=== PATIENT | male | born 1960 | race Caucasian/White ===

== ENCOUNTER 2025-01-07 12:40 | Inpatient (IN) | payer MEDICARE, SELFPAY ==
[2025-01-07] VITALS (11 sets, daily range): BP systolic 73–94; BP diastolic 59–87; PULSE 74–115; RESP 10–18; TEMP 31.8–35.2; O2SAT 85–99
--- NOTE | ~2025-01-07 | XR_ITS ---
XR chest port-a-cath/central 01/07/2025 13:21 Indication: Central line placement Procedure: AP portable chest Comparison: 01/07/2025 Findings: Cardiomegaly. Mild interstitial edema. No pleural effusion or pneumothorax. Right IJ central line tip in the SVC. No pneumothorax. Endotracheal tube tip is in expected position, tip approximately 3 cm above the urban.. Impression: 1: Mild interstitial edema. Reviewed, dictated and finalized at location O. Impression: 1: Mild interstitial edema.
--- NOTE | ~2025-01-07 | XR_ITS ---
EXAMINATION: XR chest 1V portable DATE: 01/07/2025 13:01 INDICATION: CODE BLUE. ST elevation myocardial infarction TECHNIQUE: frontal view of the chest was obtained. COMPARISON: Chest radiograph dated 03/26/14 FINDINGS: The lungs are clear with no focal airspace opacities, pulmonary edema, pleural effusion or pneumothorax. The cardiomediastinal silhouette is within normal limits for AP technique. Likely defibrillator pads project over the lower chest and upper abdomen. Additional device external to the patient projects over the mid to lower chest. IMPRESSION: 1. No acute cardiopulmonary disease. Reviewed, dictated and finalized at location A.
--- NOTE | 2025-01-07 12:44 | ECG_ITS ---
Test Date: 2025-01-07 12:44:02 Measurements Intervals [place] Rate: 88 P: 0 [place]: 0 QRS: 158 QRSD: 183 T: 82 QT: 380 QTc: 461 Interpretive Statements ATRIAL FIBRILLATION RIGHT AXIS DEVIATION [QRS AXIS > 100] RIGHT BUNDLE BRANCH BLOCK [120+ ms QRS DURATION, UPRIGHT V1, 40+ ms S IN I/aVL/V4/V5/V6] MARKED ST DEPRESSION, CONSIDER SUBENDOCARDIAL INJURY [0.2+ mV ST DEPRESSION] ACUTE [place] CRITICAL ECG No previous ECG available for comparison Electronically Signed On 01-07-2025 15:37:54 CDT by Anthony Mercer M.D.
[2025-01-07] MEDS: MIDAZOLAM HCL (*CRX) 2 MG/2 ML VIAL 6 MG (12:55)
[2025-01-07] MEDS: HYDROmorphone HCL INJ (*CRX) 1 MG/ML SYR (12:55)
--- NOTE | 2025-01-07 12:58 | PC.NURSE ---
[facility] 1252 [facility] 125[address] [place] 1253 [place] 1257 [facility] eta 30min
[2025-01-07] MEDS: FENTANYL 2,500MCG/NS250ML(*CRX 2,500 MCG/250 ML BAG 10 MCG (12:59)
[2025-01-07] MEDS: MIDAZOLAM 100MG/NS 100ML(*CRX) 100 MG/100 ML BAG (12:59)
--- NOTE | 2025-01-07 13:02 | ECG_ITS ---
Test Date: 2025-01-07 13:16:16 Measurements Intervals [place] Rate: 75 P: 0 PA: 0 QRS: 99 QRSD: 179 T: 147 QT: 424 QTc: 476 Interpretive Statements UNCERTAIN REGULAR RHYTHM RIGHT BUNDLE BRANCH BLOCK [120+ ms QRS DURATION, UPRIGHT V1, 40+ ms S IN I/aVL/V4/V5/V6] MARKED ST ELEVATION, CONSIDER INFERIOR INJURY [MARKED ST ELEVATION W/O NORMALLY INFLECTED T-WAVE IN II/aVF] ACUTE [place] CRITICAL ECG Compared to ECG 01/07/2025 12:50:59 ST (T wave) deviation still present Electronically Signed On 01-07-2025 15:40:46 CDT by Anthony Mercer M.D.
[2025-01-07] MEDS: NOREPINEPHRINE 8 MG/D5W 250 ML 8 MG/250 ML BAG 9.4 MG (13:07)
--- NOTE | 2025-01-07 13:14 | ECG_ITS ---
Test Date: 2025-01-07 12:50:59 Measurements Intervals [place] Rate: 81 P: 0 IN: 0 QRS: 103 QRSD: 201 T: 75 QT: 391 QTc: 455 Interpretive Statements ATRIAL FIBRILLATION WITH ABERRANT CONDUCTION OR VENTRICULAR PREMATURE COMPLEXES RIGHT AXIS DEVIATION [QRS AXIS > 100] RIGHT BUNDLE BRANCH BLOCK [120+ ms QRS DURATION, UPRIGHT V1, 40+ ms S IN I/aVL/V4/V5/V6] MARKED ST DEPRESSION, CONSIDER SUBENDOCARDIAL INJURY [0.2+ mV ST DEPRESSION] ACUTE [place] CRITICAL ECG Compared to ECG 01/07/2025 12:44:02 Ventricular premature complex(es) now present Aberrant conduction of supraventricular beat(s) now present ST (T wave) deviation still present Electronically Signed On 01-07-2025 15:38:15 CDT by Anthony Mercer M.D.
[2025-01-07 13:18] LABS: Hematocrit 38.8 % (42.0-52.0); Hemoglobin 12.7 g/dL (14.0-18.0); Immature Granulocyte Percent A 3.2 % (0-0.5); Lymphocytes Absolute Auto 2.17 K/mm3 (0.9-3.2); Mean Corpuscular HGB Conc 32.7 g/dl (32-36); Mean Corpuscular Hemoglobin 32.6 pg (26-34); Mean Corpuscular Volume 99.5 fl (80-100); Nucleated Red Blood Cells Absolute Auto 0.000 K/mm3 (0.0-0.012); Nucleated Red Blood Cells Perc 0.0 % (0.0-0.2); Platelet Count Result 149 k/mm3 (150-375); Red Blood Count 3.90 M/mm3 (4.6-6.20); White Blood Count 10.6 K/mm3 (4.5-10.0)
[2025-01-07 13:31] LABS: INR 1.2; Prothrombin Time 15.2 Seconds (11.1-14.7)
[2025-01-07 13:32] LABS: Partial Thromboplastin Time 27.8 Seconds (22.3-36.8)
[2025-01-07 13:33] LABS: Alanine Aminotransferase 178 U/L (6-50); Albumin Level 3.3 g/dL (3.5-5.1); Alkaline Phosphatase 41 U/L (38-126); Anion Gap 20 mmol/L (4-12); Aspartate Amino Transferase 191 U/L (17-59); Bilirubin,Total 0.6 mg/dL (0.2-1.3); Blood Urea Nitrogen 15 mg/dL (9-20); Calcium 8.2 mg/dL (8.4-10.2); Carbon Dioxide 11 mmol/L (22-30); Chloride 104 mmol/L (98-107); Cholesterol 145 mg/dL (0-200); Glucose 334 mg/dL (65-110); HDL Direct 46 mg/dL; Potassium 3.3 mmol/L (3.4-5.0); Sodium 135 mmol/L (137-145); Total Protein 5.6 g/dL (6.3-8.2); Triglycerides 225 mg/dL (<150)
--- NOTE | 2025-01-07 13:39 | ED.GENADULT ---
HPI - General Adult General Chief complaint: Cardiac Arrest/CPR Stated complaint: cardiac arrest Time Seen by Provider: 01/07/25 12:59 History of Present Illness HPI narrative: This is a 64-year-old male with history of hypertension high cholesterol and daily alcohol use (6 beers daily) presenting with CPR in progress. The patient came home from the gym and collapsed in front of his . He called EMS and police arrived and performed CPR. When EMS arrived an Igel was placed. Patient was in VFib and received multiple shocks as well as 300mg -> 150mg amiodarone plus mx rounds of EPI. On arrival patient was being some spontaneous movement and breathing actively. Rhythm was V-tach. Patient was defibrillated once with return of a organized rhythm. Related Data Allergies Allergy/AdvReac Type Severity Reaction Status Date / Time No Known Allergies Allergy Mild Unverified 04/11/04 13:26 Exam Narrative: APPEARANCE: CPR in progress Head: atraumatic. EYES: 4 mm NOSE: Atraumatic NECK: Trachea midline RESPIRATORY: LMA in place w/ BVM, lung sounds equal bilaterally CARDIOVASCULAR: Pulseless, V-tach on monitor ABDOMINAL: Non-distended MUSCULOSKELETAl: No obvious deformities NEURO unresponsive SKIN::: cold PSYCHIATRIC: unresponsive Course Vital Signs Vital signs: Vital Signs Pulse Rate 85 01/07/25 13:02 Respiratory Rate 10 L 01/07/25 13:02 Blood Pressure 73/59 L 01/07/25 13:02 Pulse Oximetry 87 L 01/07/25 13:02 Pulse Rate 85 01/07/25 13:02 Respiratory Rate 10 L 01/07/25 13:02 Blood Pressure 73/59 L 01/07/25 13:02 Pulse Oximetry 90 01/07/25 13:12 Oxygen Delivery Mechanical Ventilation 01/07/25 13:12 Procedures Arterial Line Arterial line #1: Date of Arterial Line: 01/07/25 Arterial Line Location: radial and left Perfomed Emergently - Given emergent patient conditions, temporal constraints may have precluded informed consent: Yes Time Out Performed: No Size (Gauge): 18 Technique Used: guide wire technique Post-Procedure: line sutured into place and dry sterile dressing placed Patient Tolerated Procedure: well Complications: none Additional Comments: Line was placed emergently and is NOT sterile. Central Line Placement Right IJ: Central Line Date: 01/07/25 Discussed w/ the patient/family/POA,the placement of a central venous catheter, including its clinical necessity/indication & associated potential risks, benifits and alternatives.: Yes The patient/family/POA understand(s) and acknowledge(s) the need to proceed with central venous catheter insertion as an important element of the patient's clinical management.: Yes Performed Emergently - Given emergent patient condition, temporal constraints may have precluded informed consent.: Yes Time Out Performed: Yes Patient Placed on Monitor/Pulse Ox: Yes Max. Sterile Barrier Technique: Caps, large sterile sheet and hand hygiene Central Line Prep: 2% chlorhexidine scrub and sterile drapes applied Technique: US-Guided Ultrasound Used for Placement: Yes Central Line Lumen Inserted: triple Post Procedure: sutured in place, good blood return, all ports aspirated, flushed, capped and sterile dressing applied Post Procedure X-Ray: tip of catheter in good position Patient Tolerated Procedure: well Complications: none Medical Decision Making MDM Narrative Medical decision making narrative: -Course: 64-year-old male presenting after a witnessed VFib arrest. Total down time of 27 minutes. When patient 1st arrived he had some spontaneous purposeful the movement and grunting. First pulse check showed VFib/V-tach. Patient was shocked with return of organized rhythm and pulses. Patient was intubated. Interventional cardiology was called for VFib arrest with others EKG showing elevations in AVR w/reciprocal changes in V1 through V5. Patient required a central line and pressors. A nonsterile left radial art line was placed under emergent conditions. Patient was intermittently going into a wide complex rhythm with pulses although his pulses did become very weak and thready that time. He with an auto converted back to normal sinus rhythm. Patient will be taken to the photofinishing laboratory worker for emergent intervention. Vital Signs Vital Signs: Vital Signs Pulse Rate 85 01/07/25 13:02 Respiratory Rate 10 L 01/07/25 13:02 Blood Pressure 73/59 L 01/07/25 13:02 Pulse Oximetry 87 L 01/07/25 13:02 Pulse Rate 85 01/07/25 13:02 Respiratory Rate 10 L 01/07/25 13:02 Blood Pressure 73/59 L 01/07/25 13:02 Pulse Oximetry 90 01/07/25 13:12 Oxygen Delivery Mechanical Ventilation 01/07/25 13:12 Lab Data 01/07/25 13:09 01/07/25 13:09 Labs: Lab Results 01/07/25 Range/Units 13:09 WBC 10.6 H (4.5-10.0) K/mm3 RBC 3.90 L (4.6-6.20) M/mm3 Hgb 12.7 L (14.0-18.0) g/dL Hct 38.8 L (42.0-52.0) % MCV 99.5 (80-100) fl MCH 32.6 (26-34) pg MCHC 32.7 (32-36) g/dl RDW 11.3 L (11.5-14.5) % Plt Count 149 L (150-375) k/mm3 MPV 10.2 (7.4-10.4) fl Immature Gran % (Auto) 3.2 H (0-0.5) % Neut % (Auto) 70.1 (45.5-73.1) % Lymph % (Auto) 20.5 (18.3-44.2) % Woodruff % (Auto) 5.2 (2.6-8.5) % Eos % (Auto) 0.6 (0-4.4) % Baso % (Auto) 0.4 (0.2-1.2) % Lymph # (Auto) 2.17 (0.9-3.2) K/mm3 Woodruff # (Auto) 0.6 (0.1-0.6) K/mm3 Eos # (Auto) 0.1 (0-0.3) K/mm3 Baso # (Auto) 0.0 (0.0-0.1) K/mm3 Abs Immat Gran (auto) 0.34 H (0.00-0.031) K/mm3 Absolute Neuts (auto) 7.4 H (1.3-6.7) K/mm3 Absolute Nucleated RBC 0.000 (0.0-0.012) K/mm3 Nucleated RBC % 0.0 (0.0-0.2) % PT 15.2 H (11.1-14.7) Seconds INR 1.2 APTT 27.8 (22.3-36.8) Seconds Sodium 135 L (137-145) mmol/L Potassium 3.3 L (3.4-5.0) mmol/L Chloride 104 (98-107) mmol/L Carbon Dioxide 11 L (22-30) mmol/L Anion Gap 20 H (4-12) mmol/L BUN 15 (9-20) mg/dL Creatinine Pending Estim Creat Clear Calc Pending Estimated GFR Pending Glucose 334 H (65-110) mg/dL Calcium 8.2 L (8.4-10.2) mg/dL Total Bilirubin 0.6 (0.2-1.3) mg/dL AST 191 H (17-59) U/L ALT 178 H (6-50) U/L Alkaline Phosphatase 41 (38-126) U/L Troponin I Pending Total Protein 5.6 L (6.3-8.2) g/dL Albumin 3.3 L (3.5-5.1) g/dL Triglycerides 225 H (<150) mg/dL Cholesterol 145 (0-200) mg/dL LDL Cholesterol Direct Pending HDL Direct 46 mg/dL Blood Type Pending Antibody Screen Pending Critical Care Time Critical Care Time Critical Care Time: Yes Total Critical Care Time: 75 Discharge Plan Discharge Clinical Impression: Cardiac arrest, Cardiac arrest with ventricular fibrillation Patient Disposition: Still a Patient Condition: Critical
[2025-01-07 13:43] LABS: Estimated CRCL calculation 37 ml/min; Estimated Glomerular Filt Rate 35; Troponin I 0.087 ng/mL (0.000-0.034)
--- NOTE | 2025-01-07 13:50 | PM.IMHP ---
H&P: HPI History of Present Illness Date/Time: Date of service 01/07/25 13:50 Chief Complaint: Cardiac arrest Narrative: This 64-year-old patient who apparently was in the gym earlier and after finishing workout felt chest pain and then apparently collapsed. Reported that he had VFib arrest. CPR administered. Patient was intubated. EKG shows diffuse ST depressions. Apparently in the ER collapsed again and had to undergo another CPR. Currently on 5 mcg of Levophed. Intubated and ventilated. Review of Systems Review of Systems: ROS unobtainable: Yes unobtainable due to endotracheal tube Meds Home Medications and Allergies Allergies Allergy/AdvReac Type Severity Reaction Status Date / Time No Known Allergies Allergy Mild Unverified 04/11/04 13:26 Vital Signs Vital Signs - 24 hr 01/07/25 13:02 01/07/25 13:12 Pulse Rate 85 Respiratory Rate 10 L Blood Pressure 73/59 L Pulse Oximetry 87 L 90 Oxygen Delivery Mechanical Ventilation Exam Narrative: Intubated ventilated Const: Other: No acute distress HENMT: Other: No nose bleeds Eyes: Other: No scleral icterus Neck: Other: Supple Chest: Other: Decreased air entry bilaterally Resp: Other: Decreased air entry bilaterally Cardio: Other: Regular rhythm, tachycardic GI: Other: Soft nontender Back/Spine/Pelvis: Other: No joint swelling Skin: Other: No rash Neuro: Other: Intubated sedated and ventilated Extrem: Other: No edema Psych: Other: Unable to assess because of intubated H&P: Results Labs Labs: Short CBC 01/07/25 Range/Units 13:09 WBC 10.6 H (4.5-10.0) K/mm3 Hgb 12.7 L (14.0-18.0) g/dL Hct 38.8 L (42.0-52.0) % Plt Count 149 L (150-375) k/mm3 BMP 01/07/25 13:09 Sodium 135 L Potassium 3.3 L Chloride 104 Carbon Dioxide 11 L BUN 15 Creatinine 1.91 H Glucose 334 H Calcium 8.2 L Cardiac Enzymes 01/07/25 Range/Units 13:09 Troponin I 0.087 H* (0.000-0.034) ng/mL Liver Function 01/07/25 Range/Units 13:09 Total Bilirubin 0.6 (0.2-1.3) mg/dL AST 191 H (17-59) U/L ALT 178 H (6-50) U/L Alkaline Phosphatase 41 (38-126) U/L Albumin 3.3 L (3.5-5.1) g/dL Assessment and Plan Assessment and plan (1) Cardiac arrest: Code(s): I46.9 - Cardiac arrest, cause unspecified Status: Acute Assessment and Plan: Patient had VFib arrest according to the report Plan Family informed that we will proceed for emergency cardiac catheterization. They agreeable. Will proceed in emergency fashion
--- NOTE | 2025-01-07 13:54 | P.PCNCC_ITS ---
Cardiac Cath Procedure Note Date of procedure:: 01/07/25 Performing physician:: Hina Granado MD Indication:: Cardiac arrest Brief clinical history:: This 64-year-old patient who apparently was in the gym earlier and after finishing workout felt chest pain and then apparently collapsed. Reported that he had VFib arrest. CPR administered. Patient was intubated. EKG shows diffuse ST depressions. Apparently in the ER collapsed again and had to undergo another CPR. Currently on 5 mcg of Levophed. Intubated and ventilated. Procedure Procedure performed:: 2-Selective left and right coronary angiogram. 3-Left heart catheterization with measurement of LVEDP and measurement of gradient across aortic valve. 4-LV angiogram. 5-attempted balloon angioplasty on the totally occluded left circumflex artery with several attempts with inability to pass wire. However we managed to restore MAIKOL flow 3 wire attempts were 6-insertion of left ventricular assist device Impella. 7-Right common femoral arterial angiogram. 8-insertion of Flintstone catheter and right heart catheterization measurement of pressures, oxygen saturation. Sedation/Medication given:: Moderate sedation. Access site:: Right common femoral artery. Estimated blood loss:: 10cc Procedure note:: After informed consent patient was brought in to roofing laborer with the was draped an d prepped in usual manner. the right groin was infiltrated using 1% lidocaine. six Upper Sor[place] sheath was obtained using micropuncture needle and the modified Seldinger technique. Because I did see is T elevation involving the inferior leads on the roofing laborer the environmental economist I decided to go initially with JR4 catheter and we could not engage the RCA then we withdrew with WRP without success. Subsequently I went with JL4 catheter and then selective left coronary angiogram. 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 After that guide catheter CLS 3.5 was used and we attempted to get better pictures of the RCA and I I could not engage it selectively however I could see that the flow is MAIKOL flow 3. There is possible high-grade lesion in the mid segment though. After that the CLS guide catheter was engaged into the left main. I took a wire initially luge and tried to go in the left circumflex artery without success. Then I used [employer] 150 wire without success and then tried whisper wire without success. Then this catheter was removed and then I took AL 0.75 guide catheter and tried to get a better picture of the RCA and I could not engage it. Then I tried CLS 3 without success. I took back the CLS 3.5 and tried to go back to wire the circ and I noticed that blood flow was established to the circ with MAIKOL flow 3. I could not wire the circ despite multiple attempts. After that 5 [place] pigtail catheter was advanced across the aortic valve into the left ventricle with measurement of LVEDP and measurement of gradient across aortic valve. LV angiogram was done. Pigtail catheter was removed. Right common femoral arterial angiogram was done. Then after that patient went into ventricular tachycardia and shocked 4-5 times. His blood pressure was stable while he was in ventricular tachycardia. I decided to load him with amiodarone 300 mg IV and then we shocked him couple times after that restoring normal sinus rhythm. After that we exchanged the 6 [place] right femoral sheath with Impella sheath. Pigtail catheter was advanced over J-wire and engaged into the left ventricle. This was exchanged with long exchange wire and the Impella was inserted successfully and secured in place. 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 2- left anterior descending artery is a large artery that runs and wraps around the apex. Diffuse irregularities. 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 After restoring blood flow we noticed 99% hazy lesion proximally. 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 There appears to be 80% in the mid segment. MAIKOL flow 3. 5- LVEDP was 32 mm Hg and no gradient across aortic valve. 6-LV angiogram shows ejection fraction 30%. 7- right femoral artery angiogram shows no significant disease in the right common femoral artery. 8-right heart catheterization findings: PA pressure 25 over 15 with a mean of 18. Oxygen pulmonary oxygen saturation 66%. Wedge pressure 15 mm Hg Assessment and Plan Assessment and plan (1) Cardiac arrest: Code(s): I46.9 - Cardiac arrest, cause unspecified Status: Acute Plan -continue Impella support -discussed in details with CT surgery at [facility] who accepted the patient.. -will continue Angiomax. -will make sure the patient receives 325 mg of aspirin -continue monitoring with Flintstone catheter.
--- NOTE | 2025-01-07 13:57 | PCCCNOTE ---
Called to the ED for a code blue arriving for the pt. Met with the daughter in law, Son and initially. Stated the pt had just had a strenuous work out, sat in his chair c/o feeling like he's having a heart attack. stated she went into another room to get Ibuprofen and when she came back he was unresponsive and she called 911. Notes a hx of HTN, hyperlipidemia on Losartan, atorvastatin and testosterone. Reports the pt has a hx of drinking a minimum of 6 beers/day. ED provider updated.-tato
[2025-01-07] MEDS: SODIUM CHLORIDE 0.9% IV 1,000 ML 999 ML (13:58)
--- NOTE | 2025-01-07 14:07 | WPDCNINT ---
Assessment and Plan Assessment and plan (1) Cardiac arrest: Code(s): I46.9 - Cardiac arrest, cause unspecified Status: Acute Assessment and Plan: Patient had a VFib cardiac arrest at home which was witnessed by his . Patient required 2 DC defibrillation at home then 2 en route followed by another 2 in the ER Patient was taken to cardiac catheterization lab where had multiple episodes of VT (at least 6) requiring. Cardiac catheterization showed elevated LVEDP of 32, estimated ejection fraction of 30% and multivessel coronary disease. Considering prolonged downtime with witnessed VFib arrest patient is suspected to have anoxic brain injury. At this time it is difficult to evaluate as patient has been on sedation. Patient is too unstable to take to Radiology for CT scan. Will start patient on TTM protocol. Cardiology is trying to transfer patient to [facility] considering how unstable he is for advanced care. Patient will be transferred to tertiary facility once a bed is available. Currently in cardiogenic shock-continue Impella support and Levophed infusion Plan to continue Angiomax Plan was to admit to ICU post cardiac catheterization but patient was able to get a bed at [facility] and patient was sent by air evac directly from cardiac catheterization lab to [facility]. (2) STEMI (ST elevation myocardial infarction): Code(s): I21.3 - ST elevation (STEMI) myocardial infarction of unspecified site Status: Acute Assessment and Plan: See above (3) Acute respiratory failure: Code(s): J96.00 - Acute respiratory failure, unspecified whether with hypoxia or hypercapnia Status: Acute Assessment and Plan: Acute Respiratory failure secondary to cardiac arrest Patient now intubated and on mechanical ventilation Currently on CMV tidal volume 450, rate of 16, FiO2 100% and 10 of PEEP Will Continue full mechanical ventilation support to prevent hypoxemia/hypercarbia and end organ damage. Chest x-ray reviewed ABG ordered and pending Low tidal volume ventilation strategy to prevent volutrauma (4) Shock: Code(s): R57.9 - Shock, unspecified Status: Acute Assessment and Plan: See above (5) Hyperlipidemia: Code(s): E78.5 - Hyperlipidemia, unspecified Status: Acute Assessment and Plan: Hold statin at this time due to elevated liver enzymes. (6) Essential hypertension: Code(s): I10 - Essential (primary) hypertension Status: Acute Assessment and Plan: Patient now hypotensive and on Levophed infusion (7) Electrolyte abnormality: Code(s): E87.8 - Other disorders of electrolyte and fluid balance, not elsewhere classified Status: Acute Assessment and Plan: Will recheck labs once patient arrives in the ICU (8) Elevated liver enzymes: Code(s): R74.8 - Abnormal levels of other serum enzymes Status: Acute Assessment and Plan: Likely secondary to shock liver Monitor level Patient also on amiodarone Hold statin (9) Anoxic brain injury: Code(s): G93.1 - Anoxic brain damage, not elsewhere classified Status: Acute Assessment and Plan: See above Plan DVT prophylaxis -Angiomax infusion at this time Stress ulcer prophylaxis -PPI Nutrition -NPO Code Status - Full Code I spoke to and updated patient's and daughter with regard to events since coming to the hospital and the patient's current situation with guarded prognosis Total Critical Care Time - 40 minutes Due to a high probability of clinically significant, life threatening deterioration, the patient required my highest level of preparedness to intervene emergently and I personally spent this critical care time directly and personally managing the patient. This critical care time included obtaining a history; examining the patient; pulse oximetry; ordering and review of studies; arranging urgent treatment with development of a management plan; evaluation of patient's response to treatment; frequent reassessment; and discussions with other providers. It was exclusive of separately billable procedures and treating other patients and teaching time. Please see Assessment and Plan section and the rest of the note for further information on patient assessment and treatment Industrial Servicer Consult Note Consult date: 01/08/25 Reason for consult: STEMI, cardiac arrest HPI: Fabián Gamboa is a 64 year old male with possible history of hypertension and hyperlipidemia went to gym after long time and all came home and reported to his that he felt that he had heart attack as he was having chest pain and shortness of breath. While talking to his he suddenly became unresponsive. His started doing CPR while he was in the recliner. She called police and EMS. Once aoc director intelligence officer arrived he started doing CPR. EMS arrived patient was intubated and patient was found in VFib and defibrillated x4. He was placed on Jamal and brought to ER. In ER patient was given amiodarone 300 mg followed by 150 mg. Patient went into V-tach in the ER and again defibrillated x1. Patient was then taken to cardiac catheterization lab . And cardiac lab support technician flow was restored temporally. Patient had multiple episodes of VT (at least 6) requiring defibrillation. Patient was given additional amiodarone push and was started on IV amiodarone infusion. Catheterization showed LVEDP of 32 with EF estimated at 30%. Patient had multivessel disease. Patient is going to [facility] for further evaluation management Review of Systems Review of Systems: ROS unobtainable: Yes unobtainable due to endotracheal tube, unobtainable due to medical condition and unobtainable due to mental status [facility] Past Medical History Medical History (Updated 01/07/25 @ 15:40 by Dao Key MD) Hyperlipidemia Essential hypertension Family History Family History (Updated 01/07/25 @ 14:09 by Dao Key MD) Father Acute myocardial infarction Sibling Acute myocardial infarction Mother Acute myocardial infarction Social History Social History (Updated 01/07/25 @ 14:10 by Dao Key MD) Social History: Patient is a heavy alcohol drinker drinks 6 pack of beers every day and more on the weekends. Occasionally uses marijuana. No smoking or drug abuse Meds Home Medications and Allergies Allergies Allergy/AdvReac Type Severity Reaction Status Date / Time No Known Allergies Allergy Mild Unverified 04/11/04 13:26 Vital Signs Vital Signs - 24 hr 01/07/25 12:38 01/07/25 12:59 01/07/25 12:59 Temperature Pulse Rate 115 H 115 H Respiratory Rate 11 L 11 L Blood Pressure Pulse Oximetry 85 L Oxygen Delivery Bag Valve Mask Oxygen Flow Rate 01/07/25 13:02 01/07/25 13:05 01/07/25 13:07 Temperature Pulse Rate 85 76 115 H Respiratory Rate 10 L 16 Blood Pressure 73/59 L Pulse Oximetry 87 L 85 L Oxygen Delivery Oxygen Flow Rate 01/07/25 13:08 01/07/25 13:12 01/07/25 13:15 Temperature Pulse Rate 78 84 Respiratory Rate 16 18 Blood Pressure 73/59 L Pulse Oximetry 88 L 90 93 Oxygen Delivery Mechanical Ventilation Oxygen Flow Rate 01/07/25 13:16 01/07/25 13:32 Temperature 31.8 C L 35.2 C L Pulse Rate 75 91 Respiratory Rate 18 16 Blood Pressure 93/66 L Pulse Oximetry 93 99 Oxygen Delivery Oxygen Flow Rate Exam Narrative: General: Pt is sedated, intubated and on mechanical ventilation Lungs/Chest: Trachea central Coarse BS B/L, No crackles or wheezing. Cardiac: RRR. Normal S1 S2. No murmurs Circulation: Pedal pulses are intact and symmetrical. Abdomen: Decreased bowel sounds. Obese. Soft. NT. ND. Extremities: No clubbing, cyanosis or edema. Warm : Henson in place Neurologic: Unable to assess due to sedation. Unresponsive to painful stimuli. Pupils equal Results Labs 01/07/25 13:09 01/07/25 13:09 Labs: Impressions Chest X-Ray 01/07/25 13:09 IMPRESSION: 1. No acute cardiopulmonary disease. Chest X-Ray 01/07/25 13:35 Impression: 1: Mild interstitial edema. Short CBC 01/07/25 Range/Units 13:09 WBC 10.6 H (4.5-10.0) K/mm3 Hgb 12.7 L (14.0-18.0) g/dL Hct 38.8 L (42.0-52.0) % Plt Count 149 L (150-375) k/mm3 BMP 01/07/25 13:09 Sodium 135 L Potassium 3.3 L Chloride 104 Carbon Dioxide 11 L BUN 15 Creatinine 1.91 H Glucose 334 H Calcium 8.2 L Cardiac Enzymes 01/07/25 Range/Units 13:09 Troponin I 0.087 H* (0.000-0.034) ng/mL Liver Function 01/07/25 Range/Units 13:09 Total Bilirubin 0.6 (0.2-1.3) mg/dL AST 191 H (17-59) U/L ALT 178 H (6-50) U/L Alkaline Phosphatase 41 (38-126) U/L Albumin 3.3 L (3.5-5.1) g/dL Quality VTE Prophylaxis VTE prophylaxis: pharmacologic ordered Hospitalist MIPS Advance Care Plan I have confirmed that the patient's Advanced Care Plan is present, code status is documented, or surrogate decision maker is listed in patient medical record.: Yes Medication Reconciliation I have utilized all available resources to obtain, update and review the patients current medications (includes all prescriptions, OTC, herbals, cannabis, and nutritional supplements).: Yes
--- OUTSIDE RECORDS SUMMARY | 2025-01-07 14:11 | XMS_ITS | Clinical Summary ---
Author Organization [facility] [place] [facility] [facility] Address [address] [place] [address] Care Team Providers Care Pmo Project Manager Name Role Phone Maile Carl NP Primary Care Provider [phone] Unknown, Notinfile Unavailable Unavailable Allergies No known active allergies Medications lisinopriL (PRINIVIL,ZESTRIL) 20 mg tabletIndications:H ypertension, essential Take 1 tablet (20 mg total) by mouth daily 90 tablet 1 5 Active rosuvastatin (CRESTOR) 10 mg tabletIndications:M ixed hyperlipidemia TAKE ONE TABLET (10 MG TOTAL) BY MOUTH DAILY 90 tablet 1 5 Active omeprazole (PriLOSEC) 20 mg capsuleIndications: Eosinophilic esophagitis,Dysphag ia TAKE ONE CAPSULE (20 MG TOTAL) BY MOUTH TWO (2) TIMES A DAY 180 capsule 3 5 Active montelukast (SINGULAIR) 10 mg tabletIndications:S easonal allergies Take 1 tablet (10 mg total) by mouth nightly 90 tablet 1 5 Active Active Problems Problem Noted Date Diagnosed Date Right hand pain 02/20/2024 BMI 29.0-29.9,adult 02/21/2023 Assessment & Plan (02/20/2024 9:12 AM CDT): BMI Follow-up includes: Discussed diet and exercising counseling. Mixed hyperlipidemia 05/02/2022 Prehypertension 03/14/2022 Physical exam, annual 02/14/2022 Gastroesophageal reflux dise ase with esophagitis without hemorrhage 02/14/2022 Seasonal allergies 02/14/2022 Hypertension, essential 02/14/2022 Bilateral primary osteoarthritis of knee 019 Dysphagia 10/03/2017 ETOH abuse 10/03/2017 Eosinophilic esophagitis 02/03/2014 Resolved Problems Problem Noted Date Diagnosed Date Resolved Date BMI 28.0-28.9,adult 08/22/2022 02/22/20 BMI 29.0-29.9,adult 05/22/2022 08/23/19 Assessment & Plan (05/22/2022 9:13 AM LIQUID WASTE TREATMENT PLANT OPERATOR): Weight/BMI is in healthy range. Continue healthy lifestyle to maintain. BMI 29.0-29.9,adult 05/02/2022 05/22/19 23 Assessment & Plan (05/02/2022 11:52 AM LIQU[employer] WASTE TREATMENT PLANT OPERATOR): Weight/BMI is in healthy range. Continue healthy lifestyle to maintain. BMI 29.0-29.9,adult 03/14/2022 05/02/20 22 Assessment & Plan (03/14/2022 1:34 PM LIQU[employer] WASTE TREATMENT PLANT OPERATOR): Weight/BMI is in healthy range. Continue healthy lifestyle to maintain. BMI 28.0-28.9,adult 02/28/2022 03/14/20 22 Assessment & Plan (02/28/2022 2:03 PM CDT): Weight/BMI is in healthy range. Continue healthy lifestyle to maintain. BMI 28.0-28.9,adult 02/14/2022 02/29/20 22 Assessment & Plan (02/14/2022 2:05 PM CDT): Weight/BMI is in healthy range. Continue healthy lifestyle to maintain. Gastroesophageal reflux disease 12/30/2013 10/03/2017 Difficulty in swallowing 12/30/2013 Encounters Date Type Department Care Team Description 12/03/2024 Telephone [facility] [address] [address] Maile Carl NP from Last 3 Months Immunizations Immunization Administration Dates Next Due Influenza, Unspecified 05/07/2024(Deferr ed: Patient Refused),02/20/2024(Deferred: Patient Refused),08/22/2023(Deferred: Patient Refused),05/07/2023(Deferred: Patient Refused),05/07/2023(Deferred: Patient Refused),02/21/2023(Deferred: Patient Refused),05/08/2022(Deferred: Patient Refused),05/07/2022(Deferred: Patient Refused),02/18/2022,06/07/2021(Deferred: Patient Refused),05/09/2021(Deferred: Patient Refused) Tdap 08/22/2022 Surgical History Surgery Date Site/Laterality Comments UPPER GASTROINTESTINAL ENDOSCOPY JOINT REPLACEMENT Medical History Medical History Date Comments Dysphagia Eosinophilic esophagitis 2013 per EGD Anesthesia No personal or f amily history of anethesia problems. GERD (gastroesophageal reflux disease) Allergic Family History Medical History Relation Name Comments Blood Clot Brother Family history of blood clots - (Added by TW Conv) Blood Clot Father Family history of blood clots - (Added by TW Conv) Heart attack Father Hypertension Father Family history of hypertension - (Added by TW Conv) Breast cancer Mother Cancer Mother Family history of cancer - (Added by TW Conv) Blood Clot Sister Family history of blood clots - (Added by TW Conv) Relation Name Status Comments Brother Father Mother Sister Social History Tobacco Use Types Packs/Day Years Used Date Smoking Tobacco: Never Smokeless Tobacco: Never Tobacco Cessation:Counseling Given: Not Answered Alcohol Use Standard Drinks/Week Comments Yes 35 (1 standard drink = 0.6 oz pu re alcohol) 4 cans of beer daily AUDIT-C Answer Date Recorded Q1: How often do you have a drink containing alcohol? 2-4 times a month 02/14/2022 Q2: How many drinks containi ng alcohol do you have on a typical day when you are drinking? Patient does not drink Q3: How often do you have si x or more drinks on one occasion? 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 Gender Identity Not on file Sexual Orientation Not on file Occupation Industry Job Start Date Job End Date Retired Not on file Not on file Not on file Obstetrics History Last Filed Vital Signs Vital Sign Reading Time Taken Comments Blood Pressure 124/80 08/20/2024 9:23 AM CDT Pulse 72 08/20/2024 9:23 AM CDT Temperature 37.3 C (99.1 F) 08/20/2024 9:23 AM CDT Respiratory Rate 24 02/21/2021 8:05 AM CDT Oxygen Saturation 97% 08/20/2024 9:23 AM CDT Inhaled Oxygen Concentration - - Weight 96.2 kg (212 lb) 08/20/2024 9:23 AM CDT Height 180.3 cm (5' 11) 08/20/2024 9:23 AM CDT Body Mass Index 29.57 08/20/2024 9:23 AM CDT Plan of Treatment Health Maintenance Due Date Last Done Comments Hepatitis C Screening 1960 Hepatitis B Screening 1976 Pneumococcal vaccine 65+ (1 of 1 - PCV) 2008 Zoster Vaccine (1 of 2) 2008 Influenza Vaccine (#1) 2025 02/18/2022 Depression Screening 08/20/2025 08/20/2024, 02/20/2024, 08/22/2023, Additional history exists Fall Risk Assessment 08/20/2025 08/20/2024, 02/20/2024, 08/22/2023, Additional history exists Prostate Cancer Screening-PSA 08/20/2025 08/21/2023, 02/19/2023 Well Visit 65+ 08/20/2025 08/20/2024, 02/04, 08/22/2023, Additional history exists Colon Cancer Screening-DNA Stool 03/07/2026 03/07/20 DTaP/Tdap/Td Vaccine (2 - Td or Tdap) 08/22/2032 08/22/2022 Colon Cancer Screening-FIT Discontinued 03/07/2023 Medical Devices Implanted Type Area Physician Obstetrician Device Identifier Shelf Expiration Date Model / Serial / Lot [employer] 6194-1-001 Simplex High Viscosity Cement Bone - [id number] Implanted:Qty: 1 on 06/14/2018 by Rinku Rueda MD at [facility] Bone Cement Right: Knee [employer] 12/05/2019 6194-1-001 / / [id number] [employer] 6194-1-001 Simplex High Viscosity Cement Bone - [id number] Implanted:Qty: 1 on 06/14/2018 by Rinku Rueda MD at [facility] Bone Cement Left: Knee [employer] 12/05/2019 6194-1-001 / / [id number] [employer] [id number] Attune Cruciate Retain Cementless Knee Right 7 Component Femoral - [id number] Implanted:Qty: 1 on 06/14/2018 by Rinku Rueda MD at [facility] Left: Knee [employer] 06/06/2027 [id number] / / [id number] Attune Pinning System Implanted:Qty: 1 on 06/14/2018 by Rinku Rueda MD at [facility] Bilateral : Knee [employer] 03/06/2020 2544-00-111 / / [id number] [employer] [id number] Attune Cementless Rotate Platform Knee 7 Baseplate Tibial - [id number] Implanted:Qty: 1 on 06/14/2018 by Rinku Rueda MD at [facility] Right: Knee [employer] [id number] 06/06/2027 [id number] / / [id number] [employer] [id number] Attune Cruciate Retain Cementless Knee Left 7 Component Femoral - [id number] Implanted:Qty: 1 on 06/14/2018 by Rinku Rueda MD at [facility] Right: Knee [employer] [id number] 09/04/2027 [id number] / / [id number] [employer] [id number] Attune 6mm Cruciate Retaining Rotate Platform Knee 7 Insert - [id number] Implanted:Qty: 1 on 06/14/2018 by Rinku Rueda MD at [facility] Right: Knee [employer] [id number] 05/06/2022 [id number] / / [id number] [employer] [id number] Attune 41mm Cemented Medialize Knee Component Patellar Aox - [id number] Implanted:Qty: 1 on 06/14/2018 by Rinku Rueda MD at [facility] Right: Patella [employer] [id number] 07/04/2020 [id number] / / [id number] [employer] [id number] Attune Cruciate Retain Cementless Knee Left 7 Component Femoral - [id number] Implanted:Qty: 1 on 06/14/2018 by Rinku Rueda MD at [facility] Left: Knee [employer] [id number] 09/04/2027 [id number] / / [id number] [employer] [id number] Attune 41mm Cemented Medialize Knee Component Patellar Aox - [id number] Implanted:Qty: 1 on 06/14/2018 by Rinku Rueda MD at [facility] Left: Patella [employer] [id number] 02/03/2021 [id number] / / [id number] [employer] [id number] Attune 6mm Cruciate Retaining Rotate Platform Knee 7 Insert - [id number] Implanted:Qty: 1 on 06/14/2018 by Rinku Rueda MD at [facility] Left: Knee [employer] [id number] 04/05/2023 [id number] / / [id number] Procedures Procedure Name Priority Date/Time Associated Diagnosis Comments PSA SCREEN Routine 08/21/2023 9:24 AM CDT Screening for prostate cancer STOOL DNA COLOGUARD Routine 03/07/2023 10:15 AM CDT Screening for colon cancer from Last 3 Months or Most Recently Relevant to Health Maintenance Results * PSA screen (08/21/2023 9:24 AM CDT) PSA 0.47 < OR = 4.00 ng/mL [facility] Comment: The total PSA value from this assay system is standardized against the WHO standard. The test result will be approximately 20% lower when compared to the equimolar-standardized total PSA (Scotty Jarales). Comparison of serial PSA results should be interpreted with this fact in mind. This test was performed using the Siemens chemiluminescent method. Values obtained from different assay methods cannot be used interchangeably. PSA levels, regardless of value, should not be interpreted as absolute evidence of the presence or absence of disease. Blood 08/21/2023 9:24 AM CDT 08/21/2023 9:25 AM CDT Narrative [facility] - 08/22/2023 6:14 AM CDT FASTING:YES FASTING: YES Maile Carl NP LAB BLOOD ORDERABLES Final Re sult [facility] [address] [place] [address] * Stool DNA - Cologuard (03/07/2023 10:15 AM CDT) Pathologist [facility] [place] [facility] Stool DNA - Cologuard Negative Negative [employer] (CLIA #:[id number]) Comment: NEGATIVE TEST RESULT. A negative Cologuard result indicates a low likelihood that a colorectal cancer (CRC) or advanced adenoma (adenomatous polyps with more advanced pre-malignant features) is present. The chance that a person with a negative Cologuard test has a colorectal cancer is less than 1 in 1500 (negative predictive value >99.9%) or has an advanced adenoma is less than 5.3% (negative predictive value 94.7%). These data are based on a prospective cross-sectional study of 10,000 individuals at average risk for colorectal cancer who were screened with both Cologuard and colonoscopy. (Rico Urbina al, N Engl J Med 2014;370(14):9908-0753) The normal value (reference range) for this assay is negative. COLOGUARD RE-SCREENING RECOMMENDATION: Periodic colorectal cancer screening is an important part of preventive healthcare for asymptomatic individuals at average risk for colorectal cancer. Following a negative Cologuard result, the [place] Cancer Society and U.S. Multi-Society Task Force screening guidelines recommend a Cologuard re-screening interval of 3 years. References: [place] [employer] Guideline for Colorectal Cancer Screening: https://www.cancer.org/cancer/toogp-jklwqz-golhao/cnozqdsrs-lmcfwrkuv-jgbrprn/ac s-rec ommendations.html.; Nj DK, Amy CR, Angi EngleK, Colorectal Cancer Screening: Recommendations for Physicians and Patients from the U.S. Multi-Society Task Force on Colorectal Cancer Screening , Am J Gastroenterology 2017; 112:0095-9929. TEST DESCRIPTION: Composite algorithmic analysis of stool DNA-biomarkers with hemoglobin immunoassay. Quantitative values of individual biomarkers are not reportable and are not associated with individual biomarker result reference ranges. Cologuard is intended for colorectal cancer screening of adults of either sex, 45 years or older, who are at average-risk for colorectal cancer (CRC). Cologuard has been approved for use by the U.S. FDA. The performance of Cologuard was established in a cross sectional study of average-risk adults aged 50-84. Cologuard performance in patients ages 45 to 49 years was estimated by sub-group analysis of near-age groups. Colonoscopies performed for a positive result may find as the most clinically significant lesion: colorectal cancer [4.0%], advanced adenoma (including sessile serrated polyps greater than or equal to 1cm diameter) [20%] or non- advanced adenoma [31%]; or no colorectal neoplasia [45%]. These estimates are derived from a prospective cross-sectional screening study of 10,000 individuals at average risk for colorectal cancer who were screened with both Cologuard and colonoscopy. (Rico Urbina al, N Engl J Med 2014;370(14):7209-0226.) Cologuard may produce a false negative or false positive result (no colorectal cancer or precancerous polyp present at colonoscopy follow up). A negative Cologuard test result does not guarantee the absence of CRC or advanced adenoma (pre-cancer). The current Cologuard screening interval is every 3 years. ([place] Cancer Society and U.S. Multi-Society Task Force). Cologuard performance data in a 10,000 patient pivotal study using colonoscopy as the reference method can be accessed at the following location: www.[employer].Mobiotics/results. Additional description of the Cologuard test process, warnings and precautions can be found at www.colTapShieldrd.com. Stool 03/07/2023 10:1 5 AM CDT 03/08/2023 11:50 AM CDT us Maile Carl MOBILE ARCHITECT LAB BODY FLUIDS AND STOOLS OR DERABLES Final Result [facility] (CLIA #:[id number]) [address] [place] [address] from Last 3 Months or Most Recently Relevant to Health Maintenance Insurance [facility] SIGNATURE [facility] [id number] UHC MEDICARE ADVANTAGE Advance Directives For more information, please contact: [phone] * Full Code (Latest Code Status on File) Date Activated Date Inactivated Comments 02/21/2021 7:30 AM 02/21/2021 12:26 PM * Full Code Date Activated Date Inactivated Comments 06/14/2018 3:45 PM 06/16/2018 6:20 PM * Full Code Date Activated Date Inactivated Comments 06/14/2018 3:45 PM 06/14/2018 3:45 PM * Full Code Date Activated Date Inactivated Comments 10/08/2017 12:05 PM 10/08/2017 3:08 PM Care Teams Pmo Project Manager Relationship Specialty Start Date End Date Maile Carl NP [address] [place] [address] PCP - General Internal Medicine 08/22/22 Unknown, Notinfile 02/13/22
--- NOTE | 2025-01-07 14:21 | PC.NURSE ---
20 mg etomidate and 100 mg rocc given at [address] Abbasi placed central line at 1310 art line placed at [address] Abbasi
[2025-01-07 16:02] LABS: Procalcitonin 0.0 ng/mL
[2025-01-07 16:05] LABS: Thyroid Stimulating Hormone Reflex 2.310 uIU/mL (0.465-4.68)
--- NOTE | 2025-01-07 17:11 | PCRCNOTE ---
ABG not obtained due to patient taken STAT to labor relations representative. Patients procedure complications lead him to be transferred to [facility].
--- NOTE | 2025-01-26 07:35 | PM.TDS ---
Transfer Discharge Sum: Prov Provider Date of admission: 01/07/25 13:15 Date of Documentation is 01/26/2025. Total time spent on this discharge summary on January 07, 2025 was 65 minutesthis time was spent on January 07 2025 Primary care physician: Maile Carl, ENAMEL APPLIER Admitting clinician: Hina Granado MD Attending physician on admission: Hina Granado Consults: None Attending physician on discharge: Hina rGanado Discharging clinician: Hina Granado Anticipated date of transfer: 01/07/25 Receiving physician/facility: [facility] DS: Admitting Diagnosis Discharge Date 01/07/25 Admitting Diagnosis Cardiac arrest DS: Discharge Diagnosis Discharge Diagnosis (1) Cardiac arrest with ventricular fibrillation: Code(s): I46.9 - Cardiac arrest, cause unspecified; I49.01 - Ventricular fibrillation Status: Acute Assessment and Plan: 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 EMS found to be in ventricular fibrillation. Patient was defibrillated and resuscitated and transferred to the ER. EKG nonlocalizing. Patient had sustained another cardiac arrest in the emergency room. IE-the patient emergently to the clinical laboratory scientist and during the clinical laboratory scientist we found that he has inferior ST elevation on the rug hooker. I initially went after the right coronary artery but could not be identified. Left coronary system injection was done and identified high-grade lesion left main and totally occluded left circumflex artery. 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 Multiple attempts to recanalize the left circumflex artery was done using multiple wires without success. LV angiogram was done after that and left heart catheterization. Subsequently we noticed that the patient went into incessant ventricular tachycardia and shocked few times without response. Loaded with amiodarone and shocked again with jainism of sinus rhythm. Reimaging of the left coronary system identified that the left circumflex artery flow has returned with MAIKOL flow 3 and identified high-grade lesion proximal left circumflex artery. After that Impella was placed and secured in place and communication to [facility] was done and spoke with surgeon Dr. soto who accepted the transfer. Because of the critically ill situation we elected to transfer this patient via helicopter. Patient Condition: Critical Time Spent with Patient Time attestation: Total time spent providing and/or coordinating transfer services:65 minutes Exam Narrative: Sick appearance Const: Other: No fever HENMT: Other: No eye discharge or nose discharge Eyes: Other: No eye discharge Neck: Other: Supple Chest: Other: Symmetric lung expansion Resp: Other: No wheezing Cardio: Other: Tachycardic GI: Other: No distension : Other: No flank tenderness Back/Spine/Pelvis: Other: No joint swelling Skin: Other: No skin rash Neuro: Other: Intubated and sedated Extrem: Other: No edema Psych: Other: Unable to assess DS: Data Data Completed and Pending Completed studies during hospitalization: Catheterization Pending studies at discharge: Non Labs on day of discharge: Non Procedures/Treatments: Cardiac catheterization
== END 2025-01-07 17:30 | disposition short-term general hospital (02) | DRG 270 ==
LOC: ANHED 13:16 → ANHICU 13:21
PROVIDERS: Internal Medicine; Admitting Provider Internal Medicine Cardiovascular Disease; Emergency Provider Emergency Medicine; PCP Nurse Practitioner Family; Visit Provider Internal Medicine Cardiovascular Disease
PROC: 4A023N8 Measurement of Cardiac Sampling and Pressure, Bilateral, Percutaneous Approach (ICD-10-PCS; CPT 93453; principal; 2025-01-07 13:00)
PROC: 5A02210 Assistance with Cardiac Output using Balloon Pump, Continuous (ICD-10-PCS; CPT 92920; 2025-01-07 13:00)
PROC: 5A02210 Assistance with Cardiac Output using Balloon Pump, Continuous (ICD-10-PCS; CPT 33979; 2025-01-07 13:00)
DX: I49.01 Ventricular fibrillation (principal); I21.19 ST elevation (STEMI) myocardial infarction involving other coronary artery of inferior wall; R57.0 Cardiogenic shock; J96.00 Acute respiratory failure, unspecified whether with hypoxia or hypercapnia; G93.1 Anoxic brain damage, not elsewhere classified; I46.2 Cardiac arrest due to underlying cardiac condition; I25.10 Atherosclerotic heart disease of native coronary artery without angina pectoris; E78.5 Hyperlipidemia, unspecified; R74.8 Abnormal levels of other serum enzymes; F10.10 Alcohol abuse, uncomplicated
CPT/HCPCS: 33990; 36415; 36556; 36600; 71045; 80053; 80061; 84145; 84443; 84484; 85025; 85610; 85730; 86850; 86900; 86901; 92920; 93005; 93460; 96361; 96374; 96375; 99291; A9270; C1751; C1769; C1887; C1894; J0168; J0282; J0583; J1171; J1327; J1644; J2003; J2250; J2305; J3010; J7030; J7040; J7060